=== PATIENT | male | born 1955 | race Caucasian/White ===

== ENCOUNTER 2019-09-04 02:33 | Inpatient (IN) | payer MEDICAID, OTHER ==
[~2019-09-04] VITALS: Ht 177.8 cm; Wt 72.6 kg
[2019-09-04] MEDS ORDERED: METOCLOPRAMIDE HCL 10 MG/2 ML VIAL ONE (02:57)
[2019-09-04] MEDS ORDERED: METOCLOPRAMIDE HCL 10 MG/2 ML VIAL IV ONE (03:00)
[2019-09-04] MEDS ORDERED: BISA10SU61 RC (03:09)
[2019-09-04] MEDS ORDERED: THIA250T9 GT (03:09)
[2019-09-04] MEDS ORDERED: ACET160S GT (03:09)
[2019-09-04] MEDS ORDERED: NA P133E RC (03:09)
[2019-09-04] MEDS ORDERED: MAGN400O6 GT (03:09)
[2019-09-04] MEDS ORDERED: DOCU-141 GT (03:09)
[2019-09-04] MEDS ORDERED: ZINC220C8 GT (03:09)
[2019-09-04] MEDS ORDERED: MULT237L4 GT (03:09)
[2019-09-04] MEDS ORDERED: ASCO-375 GT (03:09)
[2019-09-04] MEDS ORDERED: CHLO473M3 MM (03:09)
[2019-09-04] MEDS ORDERED: ATOR40TA GT (03:09)
[2019-09-04] MEDS ORDERED: CELE200C GT (03:09)
[2019-09-04] MEDS ORDERED: ASPI-605 GT (03:09)
[2019-09-04] MEDS ORDERED: lovenox SUBCUT (03:09)
[2019-09-04] MEDS ORDERED: TRAM50TA2 GT (03:09)
[2019-09-04] MEDS ORDERED: FERR325T28 GT (03:09)
[2019-09-04] MEDS ORDERED: LEVO50TA GT (03:09)
[2019-09-04] MEDS ORDERED: ONDA4TAB5 GT (03:09)
[2019-09-04] MEDS ORDERED: GABA-534 GT (03:09)
[2019-09-04 03:25] LABS: BASOPHILS % (AUTO) 0.1 % (0.0-2.0); EOSINOPHILS % (AUTO) 0.1 % (0.0-7.0); HEMATOCRIT 27.8 % (36.7-47.1); HEMOGLOBIN 9.3 g/dL (12.5-16.3); LYMPHOCYTES # (AUTO) 1.2 K/uL (20.0-40.0); LYMPHOCYTES % (AUTO) 4.9 % (20.5-51.5); MEAN CORPUSCULAR HEMOGLOBIN 30.8 uug (23.8-33.4); MEAN CORPUSCULAR HGB CONC 34 g/dL (32.5-36.3); MEAN CORPUSCULAR VOLUME 92.1 fL (73.0-96.2); MONOCYTES # (AUTO) 1.4 K/uL (2.0-10.0); MONOCYTES % (AUTO) 5.6 % (0.0-11.0); NEUTROPHILS # (AUTO) 22.3 K/uL (1.8-8.9); NEUTROPHILS % (AUTO) 89.3 % (38.5-71.5); PLATELET COUNT (AUTO) 369 K/uL (152-348); RED BLOOD CELL COUNT(AUTO) 3.02 MIL/uL (4.06-5.63); WHITE BLOOD COUNT (AUTO) 24.9 K/uL (3.6-10.2)
[2019-09-04 03:32] LABS: BILIRUBIN,DIRECT 0.4 mg/dL (0.0-0.2); BILIRUBIN,TOTAL 0.9 mg/dL (0.2-1.0); CREATININE 0.7 mg/dL (0.6-1.3); POTASSIUM 3.9 mmol/L (3.5-5.1); TOTAL PROTEIN, SERUM 6.6 g/dL (6.4-8.2)
[2019-09-04] MEDS ORDERED: LEVOFLOXACIN 750 MG/D5W 150 ML PIGGYBACK IV ONE (04:00)
[2019-09-04] MEDS ORDERED: LEVOFLOXACIN 750MG/D5W 150 ML IV ONE (04:11)
[2019-09-04] MEDS ORDERED: PANTOPRAZOLE SODIUM IV 80 MG in IV DEXTROSE 5% 100 ML IV ONE (04:15)
[2019-09-04] MEDS ORDERED: PANTOPRAZOLE SODIUM 40 MG VIAL ONE (04:16)
[2019-09-04] MEDS ORDERED: IOHEXOL 350 100 ML INFUS..BTL ONE (04:56)
[2019-09-04] MEDS ORDERED: IV NORMAL SALINE 250 ML IV ONE (04:56)
[2019-09-04] MEDS ORDERED: SWABABLE VALVE TRANSFER SET EA MC ONE (04:56)
[2019-09-04 06:49] VITALS: BP 137/52
[2019-09-04] MEDS ORDERED: ONDANSETRON HCL 4 MG TABLET GT PRN (08:30)
[2019-09-04] MEDS ORDERED: FLEET ENEMA 133 ML BOTTLE RC PRN (08:30)
[2019-09-04] MEDS ORDERED: ZOLPIDEM 5 MG TABLET PO PRN (08:30)
[2019-09-04] MEDS ORDERED: BISACODYL 10 MG SUPP.RECT RC PRN (08:30)
[2019-09-04] MEDS ORDERED: ONDANSETRON 4 MG/2 ML VIAL IV PRN (08:30)
[2019-09-04] MEDS ORDERED: TRAMADOL HCL 50 MG TABLET GT PRN (08:30)
[2019-09-04] MEDS ORDERED: MAGNESIUM HYDROXIDE 30 ML LIQUID UDC GT PRN (08:30)
[2019-09-04] MEDS ORDERED: ALBUTEROL SULFATE 2.5 MG/ 0.5 ML NEBU NEB PRN (08:30)
[2019-09-04] MEDS ORDERED: THIAMINE HCL 250 MG GT SCH (09:00)
[2019-09-04] MEDS ORDERED: MULTIVITAMIN WITH MINERALS GT SCH (09:00)
[2019-09-04] MEDS: THIAMINE HCL 100 MG TABLET GT SCH (09:29)
[2019-09-04] MEDS: FERROUS SULFATE 325 MG TABEC PO SCH ×2 (09:29→16:41)
[2019-09-04] MEDS: PANTOPRAZOLE SODIUM 40 MG VIAL IV SCH ×2 (09:29→20:29)
[2019-09-04] MEDS: ASCORBIC ACID 500 MG TABLET GT SCH (09:30)
[2019-09-04] MEDS: ZINC SULFATE 220 MG CAPSULE GT SCH (09:30)
[2019-09-04] MEDS: CHLORHEXIDINE GLUCONATE 15 ML MOUTHWASH MM SCH ×2 (09:30→16:41)
[2019-09-04] MEDS: DOCUSATE SODIUM 100 MG CAPSULE PO SCH ×2 (09:30→16:41)
[2019-09-04] MEDS: TRAMADOL HCL 50 MG TABLET GT PRN (09:39)
[2019-09-04] MEDS: LEVOTHYROXINE SODIUM 50 MCG TABLET GT SCH (09:39)
[2019-09-04] MEDS: MULTIVITAMINS,THERAPEUTIC TABLET GT SCH (09:41)
[2019-09-04] MEDS: IV D5/ 0.9% NACL 1,000 ML IV PRN ×2 (09:48→20:29)
[2019-09-04 11:42] VITALS: BP 126/72
[2019-09-04] MEDS: PIPERACILLIN SODIUM/TAZOBACTAM 3.375 G in IV DEXTROSE 5% 50 ML IV SCH ×3 (12:58→21:04)
[2019-09-04] MEDS: GABAPENTIN 300 MG CAPSULE GT SCH ×2 (13:02→21:04)
[2019-09-04 15:08] VITALS: BP 124/48
[2019-09-04 20:00] VITALS: BP 117/78
[2019-09-04] MEDS: ATORVASTATIN 40 MG TABLET GT SCH (20:29)
[2019-09-05] VITALS: BP 100/41
[2019-09-05 04:00] VITALS: BP 107/59
[2019-09-05] MEDS: LEVOFLOXACIN 750MG/D5W 750 MG in PREMIXED 1 EACH IV SCH (05:04)
[2019-09-05] MEDS: GABAPENTIN 300 MG CAPSULE GT SCH ×3 (05:04→21:17)
[2019-09-05] MEDS: PIPERACILLIN SODIUM/TAZOBACTAM 3.375 G in IV DEXTROSE 5% 50 ML IV SCH ×3 (05:04→22:34)
[2019-09-05] MEDS: LEVOTHYROXINE SODIUM 50 MCG TABLET GT SCH (05:04)
[2019-09-05] MEDS: IV D5/ 0.9% NACL 1,000 ML IV PRN ×2 (06:13→21:00)
[2019-09-05 06:44] LABS: BASOPHILS % (AUTO) 0.1 % (0.0-2.0); EOSINOPHILS # (AUTO) 0.3 K/uL (0.0-0.7); EOSINOPHILS % (AUTO) 1.5 % (0.0-7.0); HEMATOCRIT 25.4 % (36.7-47.1); HEMOGLOBIN 8.4 g/dL (12.5-16.3); MEAN CORPUSCULAR HEMOGLOBIN 30.2 uug (23.8-33.4); MEAN CORPUSCULAR HGB CONC 33 g/dL (32.5-36.3); MONOCYTES # (AUTO) 1.1 K/uL (2.0-10.0); MONOCYTES % (AUTO) 5.4 % (0.0-11.0); NEUTROPHILS # (AUTO) 17.4 K/uL (1.8-8.9); PLATELET COUNT (AUTO) 334 K/uL (152-348); RED BLOOD CELL COUNT(AUTO) 2.77 MIL/uL (4.06-5.63); WHITE BLOOD COUNT (AUTO) 19.7 K/uL (3.6-10.2)
[2019-09-05 07:14] LABS: CARBON DIOXIDE 28 mmol/L (21-32); CHLORIDE 97 mmol/L (98-107); CHOLESTEROL 58 mg/dL (<200); CREATININE 0.6 mg/dL (0.6-1.3); GLUCOSE 113 mg/dL (74-106); HDL CHOLESTEROL 15 mg/dL (40-60); MAGNESIUM 1.8 mg/dL (1.8-2.4); PHOSPHOROUS 3.4 mg/dL (2.5-4.9); POTASSIUM 3.7 mmol/L (3.5-5.1); TRIGLYCERIDES 83 MG/DL (30-150); UREA NITROGEN, BLOOD 8 mg/dL (7-18)
[2019-09-05 07:42] VITALS: BP 157/93
[2019-09-05] MEDS: PANTOPRAZOLE SODIUM 40 MG VIAL IV SCH ×2 (08:50→21:18)
[2019-09-05] MEDS: THIAMINE HCL 100 MG TABLET GT SCH (08:51)
[2019-09-05] MEDS: ASCORBIC ACID 500 MG TABLET GT SCH (08:52)
[2019-09-05] MEDS: DOCUSATE SODIUM 100 MG CAPSULE PO SCH ×2 (08:52→16:29)
[2019-09-05] MEDS: ZINC SULFATE 220 MG CAPSULE GT SCH (08:52)
[2019-09-05] MEDS: FERROUS SULFATE 325 MG TABEC PO SCH ×2 (08:52→16:29)
[2019-09-05] MEDS: CHLORHEXIDINE GLUCONATE 15 ML MOUTHWASH MM SCH ×2 (08:53→16:30)
[2019-09-05] MEDS: TRAMADOL HCL 50 MG TABLET GT PRN (08:53)
[2019-09-05] MEDS: Z GUARD REMEDY PASTE 57 GM TUBE TOP PRN (08:54)
[2019-09-05 09:10] LABS: ABG BASE EXCESS 2.3 mmol/L; ABG HCO3 25.8 mmol/L; ABG PCO2 35.6 mmHg (35.0-45.0); ABG PH 7.478 (7.350-7.450); ABG PO2 62.4 mmHg (75.0-100.0); ABG SITE LEFT RADIAL; ABG TOTAL HEMOGLOBIN 9.1 G/dL (13.5-18.0); COHb 2.2 % (0.5-1.5); MetHb 0.3 % (0.0-1.5); O2Hb 90.6 % (94.0-97.0); VENT MODE COOL AEROSOL 28%
[2019-09-05 11:34] VITALS: BP 120/60
[2019-09-05] MEDS: MULTIVITAMINS,THERAPEUTIC TABLET GT SCH (11:49)
[2019-09-05 15:39] VITALS: BP 124/43
[2019-09-05] MEDS: JEVITY 1.2 1000 ML LIQUID GT PRN (18:04)
[2019-09-05 18:14] LABS: FERRITIN 1236 ng/mL (26-388)
[2019-09-05 19:28] LABS: IRON, SERUM 20 ug/dL (50-175)
[2019-09-05 20:22] VITALS: BP 121/60
[2019-09-05] MEDS: ATORVASTATIN 40 MG TABLET GT SCH (21:18)
[2019-09-06] MEDS: PIPERACILLIN SODIUM/TAZOBACTAM 3.375 G in IV DEXTROSE 5% 50 ML IV SCH ×3 (05:18→21:42)
[2019-09-06 05:45] VITALS: BP 121/46
[2019-09-06] MEDS: GABAPENTIN 300 MG CAPSULE GT SCH ×3 (05:45→21:42)
[2019-09-06] MEDS: LEVOTHYROXINE SODIUM 50 MCG TABLET GT SCH (05:45)
[2019-09-06] MEDS: LEVOFLOXACIN 750MG/D5W 750 MG in PREMIXED 1 EACH IV SCH (06:29)
[2019-09-06 08:06] VITALS: BP 133/68
[2019-09-06] MEDS: FERROUS SULFATE 325 MG TABEC PO SCH ×2 (09:18→17:19)
[2019-09-06] MEDS: THIAMINE HCL 100 MG TABLET GT SCH (09:18)
[2019-09-06] MEDS: PANTOPRAZOLE SODIUM 40 MG VIAL IV SCH ×2 (09:18→20:42)
[2019-09-06] MEDS: ZINC SULFATE 220 MG CAPSULE GT SCH (09:18)
[2019-09-06] MEDS: ASCORBIC ACID 500 MG TABLET GT SCH (09:18)
[2019-09-06] MEDS: DOCUSATE SODIUM 100 MG/10 ML LIQUID UDC PO SCH ×2 (09:25→17:19)
[2019-09-06] MEDS: CHLORHEXIDINE GLUCONATE 15 ML MOUTHWASH MM SCH ×2 (10:16→17:00)
[2019-09-06] MEDS: JEVITY 1.2 1000 ML LIQUID GT PRN (10:49)
[2019-09-06] MEDS: MULTIVITAMINS,THERAPEUTIC TABLET GT SCH (11:49)
[2019-09-06 12:05] VITALS: BP 131/83
[2019-09-06 16:43] VITALS: BP 124/58
[2019-09-06 20:36] VITALS: BP 120/64
[2019-09-06] MEDS: ATORVASTATIN 40 MG TABLET GT SCH (20:42)
[2019-09-06] MEDS: IV D5/ 0.9% NACL 1,000 ML IV PRN (21:15)
[2019-09-07 01:04] VITALS: BP 100/33
[2019-09-07 04:47] VITALS: BP 105/87
[2019-09-07] MEDS: JEVITY 1.2 1000 ML LIQUID GT PRN ×2 (04:50→23:08)
[2019-09-07] MEDS: LEVOTHYROXINE SODIUM 50 MCG TABLET GT SCH (05:36)
[2019-09-07] MEDS: GABAPENTIN 300 MG CAPSULE GT SCH ×3 (05:36→21:24)
[2019-09-07] MEDS: LEVOFLOXACIN 750MG/D5W 750 MG in PREMIXED 1 EACH IV SCH (05:36)
[2019-09-07] MEDS: PIPERACILLIN SODIUM/TAZOBACTAM 3.375 G in IV DEXTROSE 5% 50 ML IV SCH ×3 (05:38→21:51)
[2019-09-07 07:59] VITALS: BP 120/88
[2019-09-07] MEDS: ZINC SULFATE 220 MG CAPSULE GT SCH (09:12)
[2019-09-07] MEDS: ASCORBIC ACID 500 MG TABLET GT SCH (09:12)
[2019-09-07] MEDS: DOCUSATE SODIUM 100 MG/10 ML LIQUID UDC PO SCH ×2 (09:12→16:16)
[2019-09-07] MEDS: PANTOPRAZOLE SODIUM 40 MG VIAL IV SCH ×2 (09:12→20:46)
[2019-09-07] MEDS: FERROUS SULFATE 325 MG TABEC PO SCH ×2 (09:13→16:16)
[2019-09-07] MEDS: THIAMINE HCL 100 MG TABLET GT SCH (09:13)
[2019-09-07] MEDS: CHLORHEXIDINE GLUCONATE 15 ML MOUTHWASH MM SCH ×2 (09:13→16:16)
[2019-09-07 11:49] VITALS: BP 130/52
[2019-09-07] MEDS: MULTIVITAMINS,THERAPEUTIC TABLET GT SCH (12:02)
[2019-09-07 15:50] VITALS: BP 115/68
[2019-09-07] MEDS: IV D5/ 0.9% NACL 1,000 ML IV PRN (16:16)
[2019-09-07 20:28] VITALS: BP 129/77
[2019-09-07] MEDS: ATORVASTATIN 40 MG TABLET GT SCH (20:46)
[2019-09-08 01:06] VITALS: BP 126/55
[2019-09-08 05:15] VITALS: BP 120/39
[2019-09-08] MEDS: LEVOFLOXACIN 750MG/D5W 750 MG in PREMIXED 1 EACH IV SCH (05:34)
[2019-09-08] MEDS: LEVOTHYROXINE SODIUM 50 MCG TABLET GT SCH (05:38)
[2019-09-08] MEDS: GABAPENTIN 300 MG CAPSULE GT SCH ×3 (05:38→21:16)
[2019-09-08] MEDS: IV D5/ 0.9% NACL 1,000 ML IV PRN (05:39)
[2019-09-08] MEDS: PIPERACILLIN SODIUM/TAZOBACTAM 3.375 G in IV DEXTROSE 5% 50 ML IV SCH ×3 (06:36→21:16)
[2019-09-08 06:44] LABS: ALANINE AMINOTRANSFERASE 35 U/L (16-63); ALKALINE PHOSPHATASE 212 U/L (50-136); ASPARTATE AMINOTRANSFERASE 22 U/L (15-37); BILIRUBIN,TOTAL 0.3 mg/dL (0.2-1.0); CARBON DIOXIDE 31 mmol/L (21-32); CHLORIDE 98 mmol/L (98-107); CREATININE 0.6 mg/dL (0.6-1.3); GLUCOSE 116 mg/dL (74-106); MAGNESIUM 1.9 mg/dL (1.8-2.4); PHOSPHOROUS 3.9 mg/dL (2.5-4.9); POTASSIUM 3.9 mmol/L (3.5-5.1); TOTAL PROTEIN, SERUM 6.3 g/dL (6.4-8.2); UREA NITROGEN, BLOOD 6 mg/dL (7-18)
[2019-09-08 07:19] LABS: BASOPHILS % (AUTO) 0.5 % (0.0-2.0); EOSINOPHILS # (AUTO) 0.3 K/uL (0.0-0.7); EOSINOPHILS % (AUTO) 3.3 % (0.0-7.0); HEMATOCRIT 25.6 % (36.7-47.1); HEMOGLOBIN 8.8 g/dL (12.5-16.3); LYMPHOCYTES # (AUTO) 1.2 K/uL (20.0-40.0); LYMPHOCYTES % (AUTO) 15.3 % (20.5-51.5); MEAN CORPUSCULAR HGB CONC 34 g/dL (32.5-36.3); MEAN CORPUSCULAR VOLUME 92.8 fL (73.0-96.2); MONOCYTES # (AUTO) 0.9 K/uL (2.0-10.0); MONOCYTES % (AUTO) 10.8 % (0.0-11.0); NEUTROPHILS # (AUTO) 5.7 K/uL (1.8-8.9); NEUTROPHILS % (AUTO) 70.1 % (38.5-71.5); RED BLOOD CELL COUNT(AUTO) 2.76 MIL/uL (4.06-5.63)
[2019-09-08 07:37] LABS: WHITE BLOOD COUNT (AUTO) 8.1 K/uL (3.6-10.2)
[2019-09-08 07:38] LABS: PLATELET COUNT (AUTO) 434 K/uL (152-348)
[2019-09-08 07:47] VITALS: BP 122/57
[2019-09-08] MEDS: DOCUSATE SODIUM 100 MG/10 ML LIQUID UDC PO SCH ×2 (08:16→16:28)
[2019-09-08] MEDS: CHLORHEXIDINE GLUCONATE 15 ML MOUTHWASH MM SCH ×2 (08:16→16:28)
[2019-09-08] MEDS: ASCORBIC ACID 500 MG TABLET GT SCH (08:16)
[2019-09-08] MEDS: PANTOPRAZOLE SODIUM 40 MG VIAL IV SCH ×2 (08:16→21:09)
[2019-09-08] MEDS: THIAMINE HCL 100 MG TABLET GT SCH (08:17)
[2019-09-08] MEDS: ZINC SULFATE 220 MG CAPSULE GT SCH (08:17)
[2019-09-08] MEDS: FERROUS SULFATE 325 MG TABEC PO SCH ×2 (08:17→16:28)
[2019-09-08 11:33] VITALS: BP 127/77
[2019-09-08] MEDS: MULTIVITAMINS,THERAPEUTIC TABLET GT SCH (11:53)
[2019-09-08] MEDS: Z GUARD REMEDY PASTE 57 GM TUBE TOP PRN (11:54)
[2019-09-08] MEDS: JEVITY 1.2 1000 ML LIQUID GT PRN (13:46)
[2019-09-08 15:40] VITALS: BP 103/60
[2019-09-08 20:00] VITALS: BP 110/65
[2019-09-08] MEDS: ATORVASTATIN 40 MG TABLET GT SCH (21:09)
[2019-09-09] VITALS: BP 100/48
[2019-09-09 03:15] VITALS: BP 106/52
== END 2019-09-09 03:34 | disposition short-term general hospital (02) | DRG 241 ==
LOC: ER 02:38 → TELE-TD3 05:34
PROVIDERS: ADMIT Internal Medicine; ATTEND Internal Medicine
PROC: 05H933Z Insertion of Infusion Device into Right Brachial Vein, Percutaneous Approach (ICD-10-PCS; principal; 2019-09-07)
DX: K29.01 Acute gastritis with bleeding (principal); J96.01 Acute respiratory failure with hypoxia; J69.8 Pneumonitis due to inhalation of other solids and liquids; E44.0 Moderate protein-calorie malnutrition; J84.9 Interstitial pulmonary disease, unspecified; Z93.0 Tracheostomy status; T39.395A Adverse effect of other nonsteroidal anti-inflammatory drugs [NSAID], initial encounter; Y92.129 Unspecified place in nursing home as the place of occurrence of the external cause; T85.628A Displacement of other specified internal prosthetic devices, implants and grafts, initial encounter; Z93.1 Gastrostomy status; E78.5 Hyperlipidemia, unspecified; E03.9 Hypothyroidism, unspecified; G62.9 Polyneuropathy, unspecified; J98.11 Atelectasis; M19.90 Unspecified osteoarthritis, unspecified site; Z79.890 Hormone replacement therapy; Z68.23 Body mass index [BMI] 23.0-23.9, adult; R13.10 Dysphagia, unspecified; Z90.49 Acquired absence of other specified parts of digestive tract; Z85.810 Personal history of malignant neoplasm of tongue; Z86.19 Personal history of other infectious and parasitic diseases
CPT/HCPCS: 36415; 36600; 70030-TC; 70490; 71045; 71275; 83550; 83690; 83735; 84100; 85025; 85730; 86850; 86900; 86901; 87040; 87070; 87077; 87086; 93005; A4217; A4663; C9113; G0378; J1956; J2543; J2765; J7042; J7050; J7060; Q9967